=== PATIENT | female | born 1985 | race Caucasian/White ===

== ENCOUNTER 2021-01-29 09:07 | Outpatient (REF) | payer OTHER, SELFPAY ==
[2021-01-29 13:50] LABS: CT PCR NOT DETECTED (Not Detect.); NG PCR NOT DETECTED (Not Detect.)
[2021-02-01 03:11] LABS: HPV mRNA E6/E7 rflx Not Detected (Not Detected)
== END 2021-01-29 09:08 | disposition home or self-care (01) ==
LOC: HO.LAB 09:07
PROVIDERS: PCP Internal Medicine; Visit Provider Advanced Practice Midwife
DX: Z01.419 Encounter for gynecological examination (general) (routine) without abnormal findings (principal); Z11.3 Encounter for screening for infections with a predominantly sexual mode of transmission; Z11.51 Encounter for screening for human papillomavirus (HPV); Z20.2 Contact with and (suspected) exposure to infections with a predominantly sexual mode of transmission
CPT/HCPCS: 87491; 87591; 87624; 88142

== ENCOUNTER → 2021-02-25 13:56 | Outpatient (BNVA) | payer OTHER, SELFPAY | PROVIDERS: Visit Provider Advanced Practice Midwife | DX: Z30.432 Encounter for removal of intrauterine contraceptive device (principal); Z30.430 Encounter for insertion of intrauterine contraceptive device | CPT/HCPCS: 58300; 58301; 81025 ==

== ENCOUNTER → 2021-04-09 13:48 | Outpatient (BNVA) | payer OTHER, SELFPAY | PROVIDERS: Visit Provider Advanced Practice Midwife | DX: Z30.431 Encounter for routine checking of intrauterine contraceptive device (principal); L08.9 Local infection of the skin and subcutaneous tissue, unspecified; Z88.1 Allergy status to other antibiotic agents | CPT/HCPCS: 99212 ==

== ENCOUNTER 2023-01-29 10:05 | Outpatient (REF) | payer OTHER, SELFPAY ==
[2023-01-30 10:00] LABS: BV Int Neg Control Negative (Negative); BV Int Pos Control Positive (Positive)
== END 2023-01-29 10:06 | disposition home or self-care (01) ==
LOC: HO.LNP 10:05
PROVIDERS: Visit Provider Advanced Practice Midwife
DX: Z01.419 Encounter for gynecological examination (general) (routine) without abnormal findings (principal); N89.8 Other specified noninflammatory disorders of vagina; L98.9 Disorder of the skin and subcutaneous tissue, unspecified
CPT/HCPCS: 87480; 87510; 87660

== ENCOUNTER → 2023-02-18 08:00 | Outpatient (BNV) | payer OTHER, SELFPAY | PROVIDERS: PCP Internal Medicine; Visit Provider Radiology Diagnostic Radiology | DX: Z12.31 Encounter for screening mammogram for malignant neoplasm of breast (principal) | CPT/HCPCS: 77063; 77067 ==

== ENCOUNTER 2023-02-18 08:01 | Outpatient (REF) | payer OTHER, SELFPAY ==
--- NOTE | ~2023-02-18 | MM_ITS ---
EXAMINATION: MM SCREENING DIGITAL BREAST TOMOSYNTHESIS, BILATERAL CLINICAL INFORMATION: Screening. Asymptomatic. The patient has a history of prior bilateral breast reduction. The lifetime risk of breast cancer based on the Tyrer-Cuzick Model is 8.7%. COMPARISON: Mammography: This study is compared with prior exams dating back to 2018. There are no interval mammograms. TECHNIQUE: Digital breast tomosynthesis is performed in both the craniocaudal and mediolateral oblique views along with computer-aided detection (CAD). Synthesized 2D images are generated from the tomosynthesis. FINDINGS: There are scattered areas of fibroglandular density (ACR BI-RADS breast composition Category b). There are post reduction changes in each breast. There are bilateral, upper outer quadrant, grouped calcifications, right greater than left. Most of the calcifications appear coarse however, some of them fine. The finding is compatible with fat necrosis from prior breast reduction. In the absence of interval mammograms for comparison and the change in each breast since the prereduction 2018 mammogram, bilateral magnification imaging of these calcifications is advised. There are no masses in either breast. MM/MM tomosynthesis screening BI IMPRESSION: Status post bilateral breast reduction. Calcifications in the upper outer quadrants of each breast warrant additional mammographic imaging with magnification. ASSESSMENT: BI-RADS BI-RADS 0 - Incomplete: Needs additional Imaging. RECOMMENDATION: Additional views of each breast with magnification Radiology department staff will contact the patient for additional imaging. Additional Imaging required This examination should not preclude the clinical evaluation of a suspicious palpable abnormality. This patient's information was entered into a reminder system with a target due date for their next mammogram.
== END 2023-02-18 08:02 | disposition home or self-care (01) ==
LOC: HO.MAMMO 08:01
PROVIDERS: PCP Internal Medicine; Visit Provider Advanced Practice Midwife
DX: Z12.31 Encounter for screening mammogram for malignant neoplasm of breast (principal)
CPT/HCPCS: 77063; 77067

== ENCOUNTER 2023-03-24 11:23 | Outpatient (REF) | payer OTHER, SELFPAY ==
--- NOTE | ~2023-03-24 | MM_ITS ---
EXAMINATION: MM DIAGNOSTIC DIGITAL MAMMOGRAPHY, bilateral breasts CLINICAL INFORMATION: Evaluate bilateral calcifications. History of prior bilateral breast reduction. COMPARISON: Mammography: 02/18/2023. 12/15/2017. TECHNIQUE: Digital mammography is performed in the following views: Bilateral CC and ML magnification views. FINDINGS: There are scattered areas of fibroglandular density (ACR BI-RADS breast composition Category b). There are bilateral grouped foci of dystrophic appearing coarse calcifications consistent with fat necrosis in both breasts. There are accompanying oil cysts. There are no suspicious calcifications identified. Findings are benign. Results are provided to the patient at time of visit by the technologist. MM/MM added views BI IMPRESSION: Additional views show no suspicious finding. Bilateral breast calcifications appear dystrophic related to fat necrosis. ASSESSMENT: BI-RADS BI-RADS 2 - Benign Findings RECOMMENDATION: 1 year F/U This patient's information was entered into a reminder system with a target due date for their next mammogram.
== END 2023-03-24 11:24 | disposition home or self-care (01) ==
LOC: HO.MAMMO 11:23
PROVIDERS: PCP Internal Medicine; Visit Provider Internal Medicine
DX: R92.1 Mammographic calcification found on diagnostic imaging of breast (principal)
CPT/HCPCS: 77066

== ENCOUNTER → 2023-03-24 11:30 | Outpatient (BNV) | payer OTHER, SELFPAY | PROVIDERS: PCP Internal Medicine; Visit Provider Radiology Diagnostic Radiology | DX: N64.1 Fat necrosis of breast (principal) | CPT/HCPCS: 77062; 77066 ==

== ENCOUNTER 2025-05-11 12:46 | Outpatient (REF) | payer OTHER, SELFPAY ==
--- NOTE | ~2025-05-11 | MM_ITS ---
EXAMINATION: MM SCREENING DIGITAL BREAST TOMOSYNTHESIS, BILATERAL CLINICAL INFORMATION: Screening. Asymptomatic. COMPARISON: Mammography: Comparison is made with available priors TECHNIQUE: Digital breast mammography with tomosynthesis is performed in both the craniocaudal and mediolateral oblique views along with computer-aided detection (CAD). FINDINGS: There are scattered areas of fibroglandular density. Bilateral reduction mammoplasty. There are no significant masses, abnormal calcifications, or other abnormalities. MM/MM tomosynthesis screening BI IMPRESSION: No mammographic evidence of malignancy. ASSESSMENT: BI-RADS Category 2: Benign RECOMMENDATION: Routine annual mammography screening. 1 year F/U This examination should not preclude the clinical evaluation of a suspicious palpable abnormality. This patient's information was entered into a reminder system with a target due date for their next mammogram. Electronically signed by: Alysia Almanzar DO 05/14/2025 05:51 PM EDT
--- OUTSIDE RECORDS SUMMARY | 2025-05-11 14:11 | XMS_ITS | Encounter Summary ---
Author Organization [facility] Address [address] [place] [address] Care Team Providers Care Lunchroom Monitor Name Role Phone Antonietta Calabrese Primary Care Provider [phone] Reason for Visit * Reason Onset Date Comments Appointment 11/17/2021 Encounter Details Date Type Department Care Team (Late st Contact Info) Description 11/17/2021 Telephone [facility] Central Scheduling Department [address] [place] [address] Telephone Intake, Staff Appointment Social History Tobacco Use Types Packs/Day Years Used Date Smoking Tobacco: Former Cigarettes 1 12 0 02/2009 - 02/2021 Smokeless Tobacco: Never Alcohol Use Standard Drinks/Week Comments Yes 0 (1 standard drink = 0.6 oz pur e alcohol) pt has 5 drinks a week Comments No Sex and Gender Information Value Date Recorded Sex Assigned at Female 10/04/2020 7:43 AM EST Legal Sex Female 10:09 AM EDT Gender Identity Female 10/04/2020 7:43 AM EST Sexual Orientation Straight 10/04/2020 7: 43 AM EST 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 Ebenezer Ramírez to telehealth appt Spoke with front line supervisor who converted to telehealth Pt confirms will be using [email or web address], computer for appt documented in this encounter Plan of Treatment Not on file documented as of this encounter Visit Diagnoses Not on filedocumented in this encounter Care Teams Lunchroom Monitor Relationship Specialty Start Date End Date Antonietta Calabrese [address] [place] [address] PCP - General Internal Medicine 02/25/21 documented as of this encounter
--- OUTSIDE RECORDS SUMMARY | 2025-05-11 14:11 | XMS_ITS | Clinical Summary ---
Author Organization [facility] Address [address] [address] Phone Care Team Providers Care Pitting Machine Operator Name Role Phone Antonietta Calabrese MD Primary Care Provide r Allergies Active Allergy Reactions Criticality Noted Date Comments Vancomycin Itching High 10/08/2014 Family History Medical History Relation Comments Epilepsy Father Epilepsy Heart attack Father Myocardial Infar ction; mid 50's yrs of age Hypertension Father Hypertension; or thostatic Type 1 Diabetes Father Diabetes Mellitu s Type 1 Uncoded Family History Father Periphera l neuropathy Brain cancer Maternal Grandfather Malignant n eoplasm of brain Prostate cancer Maternal Grandfather Prostate Ca ncer Asthma Mother Asthma Depression Mother Depression Hypertension Mother Hypertension Uncoded Family History Mother Anxiety Lung cancer Paternal Grandfather Lung Cancer Stroke Paternal Grandmother Cerebrovasc ular Accident Ulcerative colitis Paternal Grandmother Ulcerati ve Colitis Relation Status Comments Father Maternal Grandfather Mother Paternal Grandfather Paternal Grandmother Cause of De ath: Cerebrovascular Accident Social History Tobacco Use Types Packs/Day Years Used Date Smoking Tobacco: Former Cigarettes Education Answer Date Recorded Are you interested in more education? Not on eugenie e 12/11/2022 Are you concerned about learning? Not on file 12/11/2022 No 12/11/2022 No 12/11/2022 Digital Access Answer Date Recorded No 01/11/2023 No 01/11/2023 Reliable internet access at home? Not on file 01/11/2023 Device with a working camera? Not on file Comments Unknown Sex and Gender Information Value Date Recorded Sex Assigned at Not on file Legal Sex Female 9:27 AM EDT Gender Identity Not on file Sexual Orientation Not on file Last Filed Vital Signs Vital Sign Reading Time Taken Comments Blood Pressure 116/83 10/08/2014 12:50 PM EST Pulse 80 10/08/2014 12:50 PM EST Temperature 37 C (98.6 F) 10/08/2014 12:50 PM EST Respiratory Rate - - Oxygen Saturation - - Inhaled Oxygen Concentration - - Weight 68.7 kg (151 lb 8 oz) 10/08/2014 12:50 PM EST Height 170.2 cm (5' 7 ) 10/08/2014 12:50 PM EST Body Mass Index 23.73 10/08/2014 12:50 PM EST Plan of Treatment Not on file Medical Devices Not on file Insurance [place] [address] [place] [address] [place] [address] [place] [address] HMO POS [place] [address] [place] [address]MO [address] [address] [place] [address] [place] [address] [place] [address] [place] [address] HMO POS Member Subscriber Plan / Payer (Ef fective 2010-Present) Name:Marielos Ellsworth Relation to Subscriber:Self Name:Marielos Ellsworth Payer ID:[id number] (NAIC) Type:HMO Address: [facility] [id number] [place] [id number] Care Teams Pitting Machine Operator Relationship Specialty Start Date End Date Antonietta Calabrese MD [address] [place] [id number] PCP - General Internal Medicine 06/12/14 Additional Source Comments The information contained in this document represents components of the legal health record. It is not the complete legal health record.[facility]
--- OUTSIDE RECORDS SUMMARY | 2025-05-11 14:11 | XMS_ITS | Clinical Summary ---
Author Organization [facility] Address [address] [place] [address] Care Team Providers Care Climate Change Risk Assessor Name Role Phone Antonietta Calabrese Primary Care Provider [phone] Allergies Active Allergy Reactions Criticality Noted Date Comments Vancomycin Itching High 10/08/2014 Vancomycin Hcl Unknown Medications levonorgestreL (MIRENA) 20 mcg/24 hours (7 yrs) 52 mg 5 year intrauterine device Mirena (52 MG) 20 MCG/24HR Intrauterine Intrauterine Device USE DIRECTED. Refills: 0 DANNIELLE BLACK M.D.; Started 02-Jan-2016 Active 6 Active venlafaxine XR (EFFEXOR XR) 37.5 mg capsule Take 37.5 mg by mouth once a day. 5 Active LORazepam (ATIVAN) 0.5 mg tabletIndication s:Anxiety disorder, unspecified type Take 1-2 tablets (0.5-1 mg total) by mouth See admin instructions. 1-2 by mouth 30 minutes prior to procedure 2 tablet 0 Active Additional Information Patient taking differently:0.5-1 mg oral See admin instructions,1-2 by mouth 30 minutes prior to MRI, Reported on 05/18/2022 ibuprofen (MOTRIN) 200 mg tablet Take 400 mg by mouth every 6 hours as needed for pain. Active loratadine (CLARITIN) 10 mg tablet Take 10 mg by mouth once a day. Active Active Problems Problem Noted Date Diagnosed Date Night sweats 07/09/2021 Assessment & Plan (07/09/2021 2:47 PM EST): PLAN: 1. We discussed low dose of gabapentin for sweats. 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 We will continue to monitor clinically. We discussed migraine triggers as well as possibility of Riboflavin or CGRP antibodies if headaches recur. Assessment & Plan (07/11/2019 9:08 AM EST): PLAN: 1. We will continue to monitor clinically. We discussed migraine triggers as well as possibility of Riboflavin or CGRP antibodies if headaches recur. Assessment & Plan (03/02/2019 2:24 PM EDT): PLAN: 1. We will continue to monitor clinically. We discussed migraine triggers as well as possibility of Riboflavin or CGRP antibodies if headaches recur. Assessment & Plan (04/06/2018 8:04 PM EDT): PLAN: 1. We will continue to monitor clinically. We discussed migraine triggers as well as possibility of Riboflavin if headaches recur. Anxiety 08/26/2015 Assessment & Plan (10/04/2020 8:39 AM EST): PLAN: 1. We will continue with Effexor. 2. We discussed stress management techniques as well as mindfulness program. Assessment & Plan (12/04/2019 11:19 AM EDT): PLAN: 1. We will continue with Effexor. We discussed increasing the dose during this time of stress. 2. We discussed stress management techniques as well as resources. Assessment & Plan (07/11/2019 9:24 AM EST): PLAN: 1. We will continue with Effexor. We discussed increasing the dose during this time of stress. 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 We will continue to monitor clinically due to stability of symptoms and physical exam. 2. We will obtain MRI of the Brain and Cervical Spine next year to evaluate radiological stability of her disease. 3. Continue with physical therapy. 4. We dicussed small fiber neuropathy and possibility of autonomic testing. Assessment & Plan (10/04/2020 8:37 AM EST): PLAN: 1. We will continue to monitor clinically due to stability of symptoms and physical exam. 2. We will obtain MRI of the Brain and Cervical Spine next year to evaluate radiological stability of her disease. 3. We will refer her to physical therapy. 4. We dicussed small fiber neuropathy and possibility of autonomic testing. Assessment & Plan (12/04/2019 11:21 AM EDT): PLAN: 1. We will continue to monitor clinically due to stability of symptoms and physical exam. 2. We will obtain MRI of the Brain later this year to evaluate radiological stability of her disease. 3. Continue with physical activity. 4. We discussed referral to PT if weakness progresses. Assessment & Plan (07/11/2019 9:25 AM EST): PLAN: 1. We will continue to monitor clinically due to stability of symptoms and physical exam. 2. We will obtain MRI of the Brain next year to evaluate radiological stability of her disease. 3. Continue with physical activity. We will refer her to physical therapy once cleared by the surgeon. 4. We will monitor closely after her surgery on Wednesday. Assessment & Plan (03/02/2019 2:25 PM EDT): PLAN: 1. We will continue to monitor clinically due to stability of symptoms and physical exam. 2. We will obtain MRI of the Brain next year to evaluate radiological stability of her disease. 3. Continue with physical activity. Assessment & Plan (04/06/2018 8:06 PM EDT): PLAN: 1. We will continue to monitor clinically due to stability of symptoms and physical exam. 2. We will obtain MRI of the Brain and Cervical Spine to evaluate radiological stability of her disease. 3. Continue with physical activity. Leukoaraiosis 02/21/2014 Paresthesia 02/21/2014 Immunizations Immunization Administration Dates Next Due Covid-19, Pfizer, mRNA, [place] valent, PF 30 mcg/0.3 mL dose (for ages 12 and older) 10/17/2020,09/26/2020 Influenza, Injectable, Quadrivalent, Preservativ e Free 06/05/2020 Family History Medical History Relation Name Comments Cataracts Father Diabetes Father Heart disease Father Kidney disease Father Seizures Father Asthma Mother Dementia Mother Mitochondrial disorder Mother Relation Name Status Comments Father Mother Alive Social History Tobacco Use Types Packs/Day Years Used Date Smoking Tobacco: Former Cigarettes 1 12 0 02/2009 - 02/2021 Smokeless Tobacco: Never Tobacco Cessation:Counseling Given: Not Answered Alcohol Use Standard Drinks/Week Comments Yes 0 [...] Not on file No t on file Last Filed Vital Signs Vital Sign Reading Time Taken Comments Blood Pressure 137/82 05/18/2022 3:11 PM EDT Pulse 96 05/18/2022 3:11 PM EDT Temperature 36.2 C (97.1 F) 05/18/2022 3:11 PM EDT Respiratory Rate 18 03/13/2021 8:49 AM EDT Oxygen Saturation 99% 03/13/2021 8:30 AM EDT Inhaled Oxygen Concentration - - Weight 88.9 kg (196 lb) 05/18/2022 3:11 PM EDT Height 170.2 cm (5' 7 ) 05/14/2021 9:35 AM EDT Body Mass Index 30.7 05/14/2021 9:35 AM EDT Plan of Treatment Health Maintenance Due Date Last Done Comments Cervical Cancer Screening 1983 HIV Screening 1983 HPV and Pap Smear 1983 Hepatitis C Screening 1983 Pap Smear 1983 Varicella Vaccines (1 of 2 - 13+ 2-dose series) 02/04/1996 DTaP,Tdap,and Td Vaccines (5 - Tdap) 09/29/2018 09/28/2018, 11/19/2010, 01/28/1998, Additional history exists Mammogram 2023 Alcohol/Substance Use Screening 08/16/2024 Depression Screening and Follow-Up 08/16/2024 Social Drivers of Health Annual Screening 08/16/2024 COVID-19 Vaccine (3 - season) 2025 10/17/2020, 09/26/2020 Influenza Vaccine (#1) 2025 , 05/13/2023, 05/07/2022, Additional history exists RSV Vaccine (60+ years old and patients) (1 - 1-dose 75+ series) 2058 Hepatitis B Vaccines Completed 05/16/1996, 12/15/1995, 10/15/1995 Pneumococcal Vaccine: Pediatric (0-5 Years) and At-Risk Patients (6-50 Years) Aged Out 09/08/2012 No longer eligible based on patient's age to complete this topic Insurance [facility] Advance Directives Documents on File Type Date Recorded Patient [place] Man Expl anatunc health Health Care Proxy 03/12/2021 2:14 PM * Full Code (Latest Code Status on File) Date Activated Date Inactivated Comments 03/12/2021 10:35 PM 03/13/2021 2:47 PM Care Teams Climate Change Risk Assessor Relationship Specialty Start Date End Date Antonietta Calabrese [address] [place] [address] PCP - General Internal Medicine 02/25/21
== END 2025-05-11 12:47 | disposition home or self-care (01) ==
LOC: HO.MAMMO 12:46
PROVIDERS: PCP Internal Medicine; Visit Provider Internal Medicine
DX: Z12.31 Encounter for screening mammogram for malignant neoplasm of breast (principal)
CPT/HCPCS: 77063; 77067

== ENCOUNTER → 2025-05-11 13:00 | Outpatient (BNV) | payer OTHER, SELFPAY | PROVIDERS: PCP Internal Medicine; Visit Provider Internal Medicine | DX: Z12.31 Encounter for screening mammogram for malignant neoplasm of breast (principal) | CPT/HCPCS: 77063; 77067 ==

== ENCOUNTER 2025-05-15 08:29 | Outpatient (AMB) | payer OTHER, SELFPAY ==
--- NOTE | 2025-05-15 08:40 | A.OFFVIS_ITS ---
Intake Visit Reasons: bumps on mons pubis Intake Note: Here for evaluation of bumps on mons pubis for about 2 weeks Weapons Electrical Engineering Officer Required: No Information Interpreted: non-clinical & clinical Municipal Clerk: Municipal Clerk Present (radha) Accompanied by: Self / Same As Patient Allergies vancomycin Allergy (Unknown, Verified 05/15/25 08:44) Hives Medication List - Last Reconciled 05/15/25 by Erica Pena LPN levonorgestrel (Mirena) intrauterine loratadine (Claritin) 10 mg PO DAILY venlafaxine ER 37.5 mg PO DAILY Is last menstrual period known: Yes Do you need a note to return to daycare/school/sports/work: No HPI Comments Details: Patient is here today with concerns of multiple outbreaks in the [place] area, 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 No other concerns today. [facility] Medical History Mitochondrial disease History of depression History of anxiety Surgical History Hx of bilateral breast reduction surgery H/O foot surgery Family History Maternal Aunt History of breast cancer Mother Dementia HTN (hypertension) Mitochondrial disease Father Diabetes Heart attack Paternal Grandfather Colon cancer Social History Household Members: Significant Other Housing: House Alcohol intake: current Patient Tobacco Use Status: Current someday Tobacco user Cigarettes Per Day: 10 Years Smoked: 6 Current occupational status: employed Current occupation: Mental health counselor Sexual orientation: Straight/Heterosexual Gender identity: Female Female Reproductive History Menstrual Age of Menarche: 8 control method: progestin IUCD Review of Systems Const All systems reviewed & are unremarkable except as noted in HPI and below Endo Reports no additional complaints Physical Exam Const General: cooperative, healthy appearing and no acute distress Other: External inspection: 1 open lesion, not ulcerated appearing, indurated 1 cm circumference, slight erythema no, no drainage. Two other healed with scar and 1 dry and scabbed. Psych Appearance: well kempt Attitude: cooperative Thought process: Normal thought process present Assessment & Plan Assessment & Plan (1) Vulvar lesion: Code(s): N90.89 - Other specified noninflammatory disorders of vulva and perineum Plan Instructions: Cleaned with antimicrobial soap such as Dial or lever 2000 for 1-2 weeks, if no improvement to try Hibiclens cleanser. Wear loose, cotton underclothes, avoid tight outer clothing. Air when possible. Call the office if there is no improvement in 24-48hrs., or if worsening s ymptoms. Follow up PRN. The patient expressed understanding and agreement with the plan of care. All of her questions and concerns were addressed to the best of my ability. Coding Level of Care Code Est Pt Level 3 (35742) Diagnoses Vulvar lesion N90.89
--- OUTSIDE RECORDS SUMMARY | 2025-05-15 08:47 | XMS_ITS | Clinical Summary ---
Author Organization [facility] Address [address] [address] Phone Care Team Providers Care Ethnology Professor Name Role Phone Antonietta Calabrese MD Primary [...] Devices Not on file Insurance [place] [address] [place] [address] [place] [address] HMO [place] [address] [place] [address]MO POS [place] [address] [place] [address] [place] [address] [place] [address] [place] [address] [place] [address] HMO POS Member Subscriber Plan / Payer (Ef fective 2010-Present) Name:aMrielos Ellsworth Relation to Subscriber:Self Name:Marielos Ellsworth Payer ID:[id number] (NAIC) Type:HMO Address: [facility] [id number] [place] [id number] Care Teams Ethnology Professor Relationship Specialty Start Date End Date Antonietta Calabrese MD [address] [place] [id number] PCP - General Internal Medicine 06/12/14 Additional Source Comments The information contained in this document represents components of the legal health record. It is not the complete legal health record.[facility]
--- OUTSIDE RECORDS SUMMARY | 2025-05-15 08:47 | XMS_ITS | Clinical Summary ---
Author Organization [facility] Address [address] [place] [address] Care Team Providers Care Fish Housekeeper Name Role Phone Antonietta Calabrese Primary Care Provider [phone] Allergies Active Allergy Reactions Criticality Noted Date [...] Administration Dates Next Due Covid-19, Pfizer, mRNA, [place] valent, PF 30 mcg/0.3 mL dose (for [...] patient's age to complete this topic Insurance [facility] Advance Directives Documents on File Type Date Recorded Patient Service Technician Copier Expl [facility] Health Care Proxy 03/12/2021 2:14 PM * Full Code (Latest Code Status on File) Date Activated Date Inactivated Comments 03/12/2021 10:35 PM 03/13/2021 2:47 PM Care Teams Fish Housekeeper Relationship Specialty Start Date End Date Antonietta Calabrese [address] [place] [address] PCP - General Internal Medicine 02/25/21
--- OUTSIDE RECORDS SUMMARY | 2025-05-15 08:47 | XMS_ITS | Encounter Summary ---
Author Organization [facility] Address [address] [place] [address] Care Team Providers Care Master Yacht Name Role Phone Antonietta Calabrese Primary Care Provider [phone] Reason for Visit * Reason Onset Date Comments Appointment 11/17/2021 Encounter Details Date Type Department Care Team (Late st Contact Info) Description 11/17/2021 Telephone [facility] Central Scheduling Department [address] [place] [address] Telephone Intake, Staff Appointment Social History Tobacco [...] Ebenezer Ramírez to telehealth appt Spoke with medical front desk coordinator who converted to telehealth Pt confirms will be using [employer], computer for appt documented in this encounter Plan of Treatment Not on file documented as of this encounter Visit Diagnoses Not on filedocumented in this encounter Care Teams Master Yacht Relationship Specialty Start Date End Date Antonietta Calabrese [address] [place] [address] PCP - General Internal Medicine 02/25/21 documented as of this encounter
== END 2025-05-15 09:55 | disposition home or self-care (01) ==
LOC: HO.HWS 08:30
PROVIDERS: PCP Internal Medicine; Visit Provider Advanced Practice Midwife
DX: N90.89 Other specified noninflammatory disorders of vulva and perineum (principal)
CPT/HCPCS: 99213